=== PATIENT | female | born 1985 | race Caucasian/White ===

== ENCOUNTER 2018-08-19 08:17 | Inpatient (IN) | payer OTHER ==
[2018-08-19] MEDS ORDERED: LACTATED RINGER'S 1,000 ML IV (08:22)
[2018-08-19] MEDS ORDERED: MISOPROSTOL 200 MCG TAB PR (08:30)
[2018-08-19] MEDS ORDERED: OXYTOCIN 30 UNITS/LR 500 ML IV ×2 (08:30→08:33)
[2018-08-19] MEDS ORDERED: BUTORPHANOL 2 MG INJ IV (08:30)
[2018-08-19] MEDS ORDERED: METHYLERGONOVINE 0.2 MG INJ IM (08:30)
[2018-08-19] MEDS ORDERED: LIDOCAINE 1% (MPF) 30 ML INJ INJ (08:30)
[2018-08-19] MEDS ORDERED: CARBOPROST 250 MCG INJ IM (08:30)
[2018-08-19] MEDS ORDERED: CLINDAMYCIN 900 MG/D5W (PMX) 50 ML IVPB (08:30)
[2018-08-19] MEDS ORDERED: LIDOCAINE 1% (MPF) 30 ML INJ (08:34)
[2018-08-19 09:38] LABS: HEPATITIS B SURFACE ANTIGEN NEGATIVE (NEGATIVE)
[2018-08-19] MEDS: OXYTOCIN 30 UNITS/LR 500 ML IV ×3 (10:46→14:08)
[2018-08-19 11:54] LABS: ADD MAN DIFF? NO
[2018-08-19 11:57] LABS: BASOPHILS % 0.2 % (0.0-2.0); HEMATOCRIT 37.4 % (37.0-47.0); HEMOGLOBIN 12.8 g/dl (12.0-16.0); LYMPHOCYTES # 1.1 10^3/ul (0.8-2.9); MEAN CORPUSCULAR HEMOGLOBIN 31.7 pg (29.0-33.0); MEAN CORPUSCULAR HGB CONC 34.2 g/dl (32.0-37.0); MEAN CORPUSCULAR VOLUME 92.6 fl (82.0-101.0); MEAN PLATELET VOLUME 11.5 fl (7.4-10.4); MONOCYTE # 0.7 10^3/ul (0.3-0.9); MONOCYTES % 3.7 % (0.0-11.0); NEUTROPHIL # 16.9 10^3/ul (1.6-7.5); NEUTROPHILS % 89.7 % (39.0-77.0); PLATELET COUNT 188 10^3/UL (140-415); RED BLOOD COUNT 4.04 10^6/ul (4.20-5.40)
[2018-08-19 11:57] LABS: WHITE BLOOD COUNT 18.8 10^3/ul (4.8-10.8)
[2018-08-19 12:32] LABS: INR 0.94; PROTIME 12.7 Sec (11.9-14.9)
[2018-08-19] MEDS ORDERED: HYDROCODONE/APAP (5/325) TAB PO ×2 (13:00)
[2018-08-19] MEDS ORDERED: ACETAMINOPHEN 325 MG TAB PO (13:00)
[2018-08-19] MEDS ORDERED: ONDANSETRON 4 MG INJ IV (13:00)
[2018-08-19] MEDS ORDERED: BENZOCAINE 20% 56 ML SPRAY TOP (13:00)
[2018-08-19] MEDS ORDERED: OXYCODONE/ASPIRIN (4.88/325) TAB PO ×2 (13:00)
[2018-08-19] MEDS ORDERED: WITCH HAZEL/GLYCERIN PAD PR (13:00)
[2018-08-19 13:03] LABS: PARTIAL THROMBOPLASTIN TIME 29.1 Sec (23.0-35.0)
[2018-08-19] MEDS: IBUPROFEN 600 MG TAB PO ×2 (14:07→20:18)
[2018-08-19] MEDS: LANOLIN 7 GM TUBE TOP (14:08)
[2018-08-19 19:32] LABS: RAPID PLASMA REAGIN NONREACTIVE (NR)
[2018-08-19] MEDS: SENNA/DOCUSATE NA (8.6MG/50MG) TAB PO (20:18)
[2018-08-20] MEDS: IBUPROFEN 600 MG TAB PO ×5 (01:55→20:03)
[2018-08-20 09:04] LABS: ADD MAN DIFF? NO
[2018-08-20 09:08] LABS: WHITE BLOOD COUNT 11.2 10^3/ul (4.8-10.8)
[2018-08-20 09:08] LABS: BASOPHILS % 0.4 % (0.0-2.0); EOSINOPHILS % 0.1 % (0.0-7.0); HEMATOCRIT 36.5 % (37.0-47.0); HEMOGLOBIN 12.2 g/dl (12.0-16.0); LYMPHOCYTES # 2.3 10^3/ul (0.8-2.9); LYMPHOCYTES % 20.9 % (15.0-51.0); MEAN CORPUSCULAR HEMOGLOBIN 32.1 pg (29.0-33.0); MEAN CORPUSCULAR HGB CONC 33.4 g/dl (32.0-37.0); MEAN CORPUSCULAR VOLUME 96.1 fl (82.0-101.0); MEAN PLATELET VOLUME 11.8 fl (7.4-10.4); MONOCYTE # 0.6 10^3/ul (0.3-0.9); MONOCYTES % 5.6 % (0.0-11.0); NEUTROPHIL # 8.1 10^3/ul (1.6-7.5); NEUTROPHILS % 72.5 % (39.0-77.0); PLATELET COUNT 176 10^3/UL (140-415); RED CELL DISTRIBUTION WIDTH 12.7 % (11.5-14.5)
[2018-08-20] MEDS: SENNA/DOCUSATE NA (8.6MG/50MG) TAB PO ×2 (09:15→21:00)
[2018-08-21] MEDS: IBUPROFEN 600 MG TAB PO ×3 (02:09→11:53)
[2018-08-21] MEDS: SENNA/DOCUSATE NA (8.6MG/50MG) TAB PO (09:00)
[2018-08-21] MEDS: MEASLES,MUMPS,RUBELLA VACCINE INJ SC* (09:00)
== END 2018-08-21 13:03 | disposition home or self-care (01) | DRG 807 ==
LOC: OBT 08:17 → L-D 08:17 → OBT 08:22 → L-D 08:26 → PP1 12:59
PROVIDERS: Obstetrics & Gynecology
PROC: 10E0XZZ Delivery of Products of Conception, External Approach (ICD-10-PCS; principal; 2018-08-19)
PROC: 0HQ9XZZ Repair Perineum Skin, External Approach (ICD-10-PCS; 2018-08-19)
PROC: 3E033VJ Introduction of Other Hormone into Peripheral Vein, Percutaneous Approach (ICD-10-PCS; 2018-08-19)
DX: O70.0 First degree perineal laceration during delivery (principal); Z37.0 Single live birth; O69.81X0 Labor and delivery complicated by cord around neck, without compression, not applicable or unspecified; Z3A.37 37 weeks gestation of pregnancy
CPT/HCPCS: 62319; 85025; 85610; 85730; 86592; 86850; 86900; 86901; 87340